=== PATIENT | female | born 1965 | race Caucasian/White ===

== ENCOUNTER 2023-12-10 14:47 | Emergency (ER) | payer SELFPAY ==
[~2023-12-10] VITALS: Ht 170.2 cm; Wt 53.5 kg
[2023-12-10 16:02] LABS: BASOPHILS # (AUTO) 0.1 (0.0-0.1); BASOPHILS % 1.5 % (0.0-1.0); EOSINOPHILS # (AUTO) 0.1 (0.0-0.4); EOSINOPHILS % 1.1 % (0.0-6.0); HEMATOCRIT 42.2 % (34.2-44.1); HEMOGLOBIN 13.9 g/dL (12.0-16.0); LYMPHOCYTES # (AUTO) 2.8 (1.0-3.2); LYMPHOCYTES % 33.6 % (18.0-39.1); MEAN CORPUSCULAR HEMOGLOBIN 32.9 pg (28-32); MEAN CORPUSCULAR HGB CONC 32.9 g/dL (31-35); MEAN CORPUSCULAR VOLUME 99.8 fL (81-99); MONOCYTES # (AUTO) 1.2 (0.2-0.8); MONOCYTES % 14.8 % (4.4-11.3); NEUTROPHILS # (AUTO) 4.1 (2.1-6.9); NEUTROPHILS % 48.6 % (38.7-80.0); PLATELET COUNT 196 x10e3/uL (140-360); RED BLOOD COUNT 4.23 x10e6/uL (3.6-5.1); RED CELL DISTRIBUTION WIDTH 14.3 % (11.7-14.4)
[2023-12-10 16:16] LABS: AMPHETAMINES SCREEN,URINE NEGATIVE (NEGATIVE); BENZODIAZEPINES SCREEN,URINE NEGATIVE (NEGATIVE); CANNABINOIDS SCREEN,URINE NEGATIVE (NEGATIVE); METHADONE SCREEN, URINE NEGATIVE (NEGATIVE); OPIATES SCREEN,URINE NEGATIVE (NEGATIVE); PHENCYCLIDINE SCREEN,URINE NEGATIVE (NEGATIVE)
[2023-12-10 16:17] LABS: ALBUMIN/GLOBULIN RATIO 1.6 (0.8-2.0); ANION GAP 23.4 mmol/L (8-16); BILIRUBIN,TOTAL 0.9 mg/dL (0.2-1.2); CALCIUM 11.3 mg/dL (8.4-10.2); CREATININE, SERUM 0.82 mg/dL (0.57-1.11); POTASSIUM 4.4 mmol/L (3.5-5.1); TOTAL PROTEIN 8.1 g/dL (6.5-8.1)
[2023-12-10 16:20] LABS: CLARITY,URINE CLOUDY (CLEAR); COLOR,URINE YELLOW (YELLOW); PH,URINE 5.5 (5 - 7)
[2023-12-10] MEDS: SODIUM CHLORIDE 0.9% 1000ML 1,000 ML IV ONE (16:20)
[2023-12-10] MEDS: ONDANSETRON HCL INJ 2MG/ML 2ML 2 MG/ML VIAL IV STA (16:20)
[2023-12-10 16:21] LABS: BILIRUBIN,URINE 1+ (NEGATIVE); GLUCOSE, URINE NEGATIVE (NEGATIVE); KETONES,URINE TRACE (NEGATIVE); LEUKOCYTE ESTERASE ,URINE 1+ (NEGATIVE); NITRITE,URINE NEGATIVE (NEGATIVE); PROTEIN,URINE DIPSTICK 1+ (NEGATIVE); URINE UROBILINOGEN 0.2 mg/dL (0.2 - 1)
[2023-12-10 16:23] LABS: BACTERIA,URINE MANY /HPF; EPITHELIAL CELLS,URINE FEW /LPF; MUCUS,URINE MANY (RARE); WBC,URINE (MAN) >50 /HPF (0-5)
[2023-12-10 16:24] LABS: HYALINE CASTS >15 (0-1); TRANSITIONAL EPI CELLS,URINE FEW
[2023-12-10 16:25] LABS: RENAL EPITHELIAL CELLS,URINE FEW
[2023-12-10] MEDS ORDERED: CEFTRIAXONE 1 GM VIAL ONE (17:10)
[2023-12-10] MEDS ORDERED: IOPAMIDOL 370 MG/ML 100 ML INFUS..BTL INJ ONE (17:22)
[2023-12-10] MEDS ORDERED: METRONIDAZOLE500 MG PO (19:01)
[2023-12-10] MEDS ORDERED: CIPRO500 MG PO (19:01)
[2023-12-10] MEDS ORDERED: ONDANSETRON ODT4 MG SL (19:01)
[2023-12-10 19:03] VITALS: PULSE 75; RESP 20; TEMP 97.7
[2023-12-10 19:10] VITALS: BP 118/99; PULSE 75; RESP 20; TEMP 97.7; O2SAT 100
== END 2023-12-10 19:20 | disposition home or self-care (01) ==
LOC: ER 15:10
DX: K52.9 Noninfective gastroenteritis and colitis, unspecified (principal); F10.10 Alcohol abuse, uncomplicated; I10 Essential (primary) hypertension; E78.5 Hyperlipidemia, unspecified; F41.9 Anxiety disorder, unspecified; F98.8 Other specified behavioral and emotional disorders with onset usually occurring in childhood and adolescence
CPT/HCPCS: 36415; 74177; 80053; 80307; 80320; 81001; 83690; 84484; 85025; 87086; 87400; 93005; 99284; J0696; J2405; J7030; Q9967; U0002